=== PATIENT | male | born 1970 | race Hispanic/Latino ===

== ENCOUNTER 2016-02-19 11:58 | Emergency (ER) | payer OTHER ==
[~2016-02-19] VITALS: Ht 185.4 cm; Wt 90.5 kg
[2016-02-19 12:34] LABS: POINT-OF-CARE METER ID UU13113778; POINT-OF-CARE USER ID STWBNM43
[2016-02-19 13:16] LABS: HEMATOCRIT 51.5 % (38.0-50.0); MCH 27.7 PG (29.0-34.0); MCHC 33.2 G/DL (30.0-36.0); MCV 83.5 FL (86-99); MEAN PLAT.VOLUME 9.9 uM^3 (9.0-12.4); PLATELET COUNT 255 K/uL (156-360); RBC DIS.WIDTH-CV 12.4 % (11.8-14.6); RBC DIS.WIDTH-SD 37.6 % (39-53); RED BLOOD COUNT 6.17 M/uL (4.00-5.50); WHITE BLOOD COUNT 10.1 K/uL (4.1-10.2)
[2016-02-19 13:24] LABS: CHLORIDE 99 mEq/L (99-109); SODIUM 136 mEq/L (136-147)
[2016-02-19 13:26] LABS: GLUCOSE 232 mg/dL (70-99)
[2016-02-19 13:28] LABS: ANION GAP 9 MEQ/L (2-14); TOTAL BILIRUBIN 0.6 mg/dL (0.0-1.0)
[2016-02-19 13:30] LABS: ALKALINE PHOSPHATASE 99 IU/L (3-129); GFR ESTIMATE (CALCULATED) > 59 mL/min/
[2016-02-19 13:31] LABS: UREA NITROGEN (BUN) 13 mg/dL (9-23)
[2016-02-19 20:43] LABS: POINT-OF-CARE METER ID UU13113702
[2016-02-19 20:46] LABS: ADD MIUA? NO; BILIRUBIN NEGATIVE; BLOOD NEGATIVE; COLOR YELLOW ((YELLOW)); GLUCOSE (STRIP) 500; KETONES TRACE; LEUKOCYTES NEGATIVE; NITRITE NEGATIVE; PROTEIN (STRIP) NEGATIVE; SPECIFIC GRAVITY 1.031 (1.000-1.030); UCUL ADDED? NO
[2016-02-19] MEDS ORDERED: METFORMIN HCL500 M4 PO (22:05)
[2016-02-19 22:09] LABS: POINT-OF-CARE METER ID UU13113702
[2016-02-19] MEDS ORDERED: ATHLETIC FOOT C30 GM TP (22:34)
[2016-02-19] MEDS ORDERED: DIFLUCAN150 MG PO (22:34)
[2016-02-19 22:38] VITALS: BP 121/79
== END 2016-02-19 22:40 | disposition home or self-care (01) ==
LOC: EME 11:58
PROVIDERS: Emergency Medicine
DX: E11.65 Type 2 diabetes mellitus with hyperglycemia (principal); B35.6 Tinea cruris; F17.200 Nicotine dependence, unspecified, uncomplicated; Z71.6 Tobacco abuse counseling
CPT/HCPCS: 80053; 81003; 82948; 85027; 99281; 99285; J7030